=== PATIENT | female | born 1985 | race African-American/Black ===

== ENCOUNTER → 2019-08-17 | Outpatient (CLI) | payer OTHER ==
--- NOTE | 2019-08-17 10:03 | REP ---
Clinical: Anatomical evaluation. Comparison: None . Findings: Examination demonstrates a single live intrauterine in breech presentation. motion is identified by technologist. Placenta is noted anterior and grade one without evidence for placenta previa or abruption. Amniotic fluid volume is normal. Cervix measures 4.4 cm in length and appears closed. No evidence for nuchal cord. Gestational age by LMP 28 weeks 4 days with NIEVES 11/05/2019 . Gestational age by current measurements 30 weeks 1 day with NIEVES 10/25/2019 . FHR equals 161 beats per minute. BPD 7.6 cm 30 weeks 2 days HC 28.7 cm 31 weeks 3 days AC 25.2 cm 29 weeks 3 days FL 5.6 cm 29 weeks 3 days HL 5.2 cm 30 weeks 2 days HC/AC ratio 1.14 Estimated weight 1437 grams ( 68th percentile). Amniotic fluid index: 20.8 cm Umbilical cord SD ratio: 2.67 Anatomical assessment demonstrates normal structures including cranium, choroid plexus, cavum, cerebellum/posterior fossa, lungs, four-chamber heart, diaphragm, stomach, cord insertion/three-vessel cord, kidneys/bladder, spine, and extremities. Impression: 1. Single live intrauterine in breech presentation demonstrating appropriate interval growth. 2. Limited evaluation of the facial features and cardiac ventricular outflow tracts noted. Remainder of the anatomical assessment is complete and normal. Electronically Signed by Abelino Porras MD 08/17/2019 09:55 A
== END ==
LOC: M RAD 08:44
PROVIDERS: ATTEND Obstetrics & Gynecology
DX: O13.2 Gestational [pregnancy-induced] hypertension without significant proteinuria, second trimester (principal); Z3A.30 30 weeks gestation of pregnancy

== ENCOUNTER → 2019-09-14 | Outpatient (CLI) | payer OTHER ==
--- NOTE | 2019-09-14 08:48 | REP ---
Clinical: well-being. Comparison: 08/17/2019 . Findings: Examination demonstrates a single live intrauterine in cephalic presentation. motion is identified by technologist. Placenta is noted anterior and grade I I without evidence for placenta previa or abruption. Amniotic fluid volume is normal. Cervix measures 5.3 cm in length and appears closed. No evidence for nuchal cord. Gestational age by LMP 32 weeks 4 days with NIEVES 11/05/2019 . Gestational age by first US 34 weeks 1 day with NIEVES 10/25/2019 . FHR equals 141 beats per minute. Biophysical profile score: 8/8 Amniotic fluid index: 20.4 cm Umbilical cord SD ratio: 2.62 Impression: Single live intrauterine in cephalic presentation. Biophysical profile score and amniotic fluid volume are normal. Electronically Signed by Abelino Porras MD 09/14/2019 08:39 A
== END ==
LOC: M RAD 08:03
PROVIDERS: ATTEND Obstetrics & Gynecology
DX: O28.3 Abnormal ultrasonic finding on antenatal screening of mother (principal); Z3A.34 34 weeks gestation of pregnancy

== ENCOUNTER → 2019-10-09 | Outpatient (CLI) | payer OTHER ==
--- NOTE | 2019-10-09 15:08 | REP ---
OB ULTRASOUND: Real-time sonographic evaluation of the gravid uterus performed. There is a single living intrauterine gestation, estimated gestational age 36 weeks 1 day based on LMP, EDC 11/05/2019. Today's measurements indicate appropriate growth compared to the study of 08/17/2019. BPD 94 mm = 38 weeks 2 days, 80th percentile HC 328 mm = 37 weeks 1 day, 68th percentile AC 361 mm = 40 weeks 0 days, over 95th percentile FL 70 mm = 36 weeks 1 day, 50th percentile HC/AC ratio 0.91, minimally below normal range of 0.92 to 1.11. Estimated weight 3560 grams, over 97th percentile. Cervix is closed and measures 3.9 cm in length. heart rate 146 beats per minute. Amniotic fluid within normal limits, GELA 10.6, within normal range of 7.7 to 24.9. Biophysical profile score 8/8. S/D ratio 2.62, within normal range of 1.96 to 2.96. RI 0.62, within normal range of 0.59 to 0.75. Visualized anatomy today includes upper lip, four chamber heart, stomach, cord insertion, three-vessel cord, kidneys and bladder which are all grossly unremarkable. position vertex. Placenta anterior and grade 2 with no previa or abruption. Electronically Signed by Tramaine Su MD 10/09/2019 04:56 P
== END ==
LOC: M RAD 13:45
PROVIDERS: ATTEND Obstetrics & Gynecology
DX: Z34.83 Encounter for supervision of other normal pregnancy, third trimester (principal); Z3A.36 36 weeks gestation of pregnancy

== ENCOUNTER 2019-10-20 21:04 | Outpatient (CLI) | payer OTHER ==
[~2019-10-20] VITALS: Ht 175.3 cm; Wt 96.1 kg
[2019-10-20] VITALS (7 sets, daily range): BP systolic 134–176; BP diastolic 82–111
[2019-10-20] MEDS ORDERED: COLA100C5 PO (21:36)
[2019-10-20] MEDS ORDERED: PRENTAB9 PO (21:36)
[2019-10-20] MEDS ORDERED: FERR325T3 PO (21:36)
[2019-10-20] MEDS ORDERED: OCUVCAP PO (21:36)
[2019-10-20] MEDS ORDERED: LABE200T32 PO (21:36)
[2019-10-20 22:21] LABS: HEMATOCRIT 35.9 % (36.0-47.0); HEMOGLOBIN 11.9 g/dl (12.0-15.5); MEAN CORPUSCULAR HEMOGLOBIN 30.4 pg (27.0-33.0); MEAN CORPUSCULAR HGB CONC 33.1 g/dl (32.0-36.5); MEAN CORPUSCULAR VOLUME 91.6 fl (80.0-96.0); PLATELET COUNT, AUTOMATED 206 10^3/uL (150-450); RED BLOOD COUNT 3.92 10^6/uL (4.00-5.40); WHITE BLOOD COUNT 5.7 10^3/uL (4.0-10.0)
[2019-10-20 22:46] LABS: ALT/SGPT 13 U/L (12-78); BILIRUBIN,TOTAL 0.4 MG/DL (0.2-1.0); CREATININE FOR GFR 0.47 MG/DL (0.55-1.30); CREATININE,RANDOM URINE 44.5 MG/DL; GLOMERULAR FILTRATION RATE > 60.0 (>60); LDH LACTATE DEHYDROGENASE 216 U/L (84-246); TOTAL PROTEIN,RANDOM URINE 10.7 MG/DL (0.0-12.0); URIC ACID 3.7 MG/DL (2.6-6.0)
[2019-10-20] MEDS ORDERED: NIFEdipine 30 MG XL TAB PO ONE (23:00)
[2019-10-21 00:07] VITALS: BP 135/80
[2019-10-21 00:22] VITALS: BP 133/78
--- NOTE | 2019-10-21 10:11 | HPE ---
DATE OF ADMISSION: 10/20/2019 33-year-old, 2, para 1, last menstrual period (LMP) 01/29/2019, estimated date of confinement (EDC) 11/05/2019, at 37 and 6 weeks of gestation has a history of recent use of labetalol 200 twice a day. She has a longstanding history of chronic hypertension and taking her own blood pressures she saw midrange blood pressures came in although she is asymptomatic. She had a CT scan and MRI ruling out renal artery stenosis in 2016. She has a diagnosis of chronic hypertension, etiology unknown. She had been on nifedipine XL for 10 years. She had been on a combination of hydrochlorothiazide and some other medication, although in this she just recently started on labetalol 200 twice a day which was at her last visit at 36 weeks of gestation. PAST HISTORY: In 2018, at 38 weeks, spontaneous vaginal delivery of female. Her medications presently are labetalol twice a day and we added nifedipine 30 mg XL. Labs are A positive, HIV negative, hepatitis negative, RPR negative, rubella immune. Varicella immune. Pap normal. Urine negative. Gonorrhea and chlamydia are negative. 1 hour glucose was 146. Her 3 hour GTT fasting was 86, 1 hour 169, 2 hour 159 with 3 hours of 118. GBS status is unknown. She is presently booked for induction of labor on 10/23/2019. On examination, no distress. No right upper quadrant pain. No visual disturbances. No edema. No swelling. Normal urinary output. Symphysis fundus height is 38, vertex presenting. Category 1 strip with the occasional contractions, although she is not minding them. Cervix is posterior closed, not dilated and very high, thick. No vaginal bleeding or discharge. We added nifedipine XL 30. Kept here for several hours. Blood pressure ranges 134/83, 136/81, 138/82, 135/80, 133/78 and she is asymptomatic on the nifedipine. She said it worked well for her for 10 years in combination with labetalol. Temperature is 98.8, respirations are 18, pulse 88. Hemoglobin 11.9, hematocrit 35.9, and platelets 206. Her pre E profile, liver enzymes were normal. Uric acid was 3.7. Protein creatinine ratio is 0.24. In summary, we have chronic hypertension requiring additional medication, discharged on the medication. Followup for induction of labor in 48 hours. Precautions were given. All questions were answered.
== END 2019-10-21 01:25 | disposition home or self-care (01) ==
LOC: M LDO 21:04
PROVIDERS: ATTEND Obstetrics & Gynecology
DX: O26.893 Other specified pregnancy related conditions, third trimester (principal); R03.0 Elevated blood-pressure reading, without diagnosis of hypertension; O10.012 Pre-existing essential hypertension complicating pregnancy, second trimester; Z3A.37 37 weeks gestation of pregnancy
CPT/HCPCS: 59025; 82247; 82565; 82570; 83615; 84156; 84450; 84460; 84550; 85027; G0378; G0463

== ENCOUNTER 2019-10-23 14:14 | Inpatient (IN) | payer OTHER ==
[~2019-10-23] VITALS: Ht 175.3 cm; Wt 95.6 kg
[2019-10-23] VITALS (12 sets, daily range): BP systolic 120–156; BP diastolic 73–101
[~2019-10-23 14:14] MED LIST: COLA100C5 PO; FERR325T3 PO; LABE200T32 PO; OCUVCAP PO; PRENTAB9 PO
[2019-10-23] MEDS ORDERED: NIFE30TA50 PO (14:28)
[2019-10-23] MEDS ORDERED: LACTATED RINGER'S 1000 ML IV STA (14:48)
[2019-10-23 15:52] LABS: BASO % 0.4 % (0.0-1.0); EOS # 0.1 10^3/uL (0.0-0.5); EOS % 0.9 % (0.0-3.0); HEMATOCRIT 34.1 % (36.0-47.0); HEMOGLOBIN 11.4 g/dl (12.0-15.5); LYMPH # 1.1 10^3/uL (1.5-5.0); MEAN CORPUSCULAR HEMOGLOBIN 30.6 pg (27.0-33.0); MEAN CORPUSCULAR HGB CONC 33.4 g/dl (32.0-36.5); MEAN CORPUSCULAR VOLUME 91.4 fl (80.0-96.0); MONO # 0.7 10^3/uL (0.0-0.8); MONO % 11.7 % (0.0-5.0); NEUTROPHILS # 3.7 10^3/uL (1.5-8.5); NEUTROPHILS % 66.8 % (36.0-66.0); PLATELET COUNT, AUTOMATED 213 10^3/uL (150-450); RED BLOOD COUNT 3.73 10^6/uL (4.00-5.40); WHITE BLOOD COUNT 5.5 10^3/uL (4.0-10.0)
[2019-10-23 15:59] LABS: APPEARANCE, URINE CLEAR (CLEAR); BACTERIA, URINE AUTO 1+ (NEGATIVE); BILIRUBIN, URINE AUTO NEGATIVE (NEGATIVE); BLOOD, URINE BLOOD NEGATIVE (NEGATIVE); COLOR, URINE STRAW (YELLOW); GLUCOSE, URINE (UA) AUTO NEGATIVE (NEGATIVE); KETONE, URINE AUTO NEGATIVE (NEGATIVE); LEUKOCYTE ESTERASE, URINE AUTO TRACE (NEGATIVE); NITRITE, URINE AUTO NEGATIVE (NEGATIVE); PROTEIN, URINE AUTO NEGATIVE (NEGATIVE); RBC, URINE AUTO 1 /HPF (0-3); SPECIFIC GRAVITY URINE AUTO 1.005 (1.002-1.035); SQUAMOUS EPITHELIAL CELL UR AU 0 /HPF (0-6); UROBILINOGEN, URINE AUTO 0.2 mg/dL (0.0-2.0); WBC, URINE AUTO 2 /HPF (0-3)
--- NOTE | 2019-10-23 16:13 | HPEPDOC ---
Obstetrical History & Physical General Date of Admission Oct 23, 2019 at 14:14 History of Present Illness 34 yo at 38+1 weeks gestation by LMP of [id number] c/w 7+6 week US on 26Mar2019 presents to L&D for an IOL for CHTN. She takes labetalol and nifedipine for BP control. Today she reports feeling well. She denies any vaginal bleeding, pelvic pain, contractions, or leakage of fluid. She endorses excellent movement. Chief Complaint: Induction of labor Age: 34 : 2 Term: 1 Pre-term: 0 Abortions: 0 Livin Care Care: Good Care Dating Final EDC: Nov 05, 2019 Final EDC for Daily Update: Nov 05, 2019 Final EDC by: LMP (LMP of [id number] set NIEVES of 05Nov2019) LMP: Jan 29, 2019 1st Trimester Date: Mar 26, 2019 (7+6 week US on 26Mar2019 c/ w LMP dating. NIEVES remains 05Nov2019) Antepartum Course Diagnos(e)s Chronic hypertension --> controlled with labetalol and nifedipine. Has been on ASA throughout . Elevated 1hr GTT of 146. Normal 3hr GTT Past Medical History Past Obstetrical History : Past Obstetrical History: Multigravida ( in 2018 after IOL for CHTN) Type of Delivery: Spontaneous Vaginal Del. 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 Past Medical History Medical History Chronic hypertension --> controlled with meds Surgical History: Noble teeth, Other (Foot surgery) Family History Significant Family History: No pertinent family hx Social History Marital Status: Family situation: Spouse/partner home Psychosocial History: No pertinent psych hx * Smoker: non-smoker Alcohol: Denies Drugs: denies Imunizations Tdap status: current Influenza Status: needs Allergies Coded Allergies: No Known Allergies (Unverified , 10/20/19) Medications Scheduled Docusate Sodium (Colace) 100 Mg Capsule, 100 MG PO BID Ferrous Sulfate (Ferrous Sulfate) 325 Mg Tablet.dr, 325 MG PO BID Labetalol HCl (Labetalol HCl) 200 Mg Tablet, 200 MG PO BID Nifedipine (Nifedipine ER) 30 Mg Tablet.er, 30 MG PO DAILY No.137/Iron/Folic Acd ( Vitamin Tablet) 1 Each Tablet, 1 TAB PO DAILY Vit C/E/Zn/Coppr/Lutein/Zeaxan (Ocuvite Lutein-Zeaxanthin Cap) 1 Each Capsule, 1 CAP PO BID Physical Examination Physical Examination GENERAL: Alert and oriented times three. ABDOMEN: Gravid and non-tender to touch. FETUS: Is vertex (VTX) by sterile vaginal examination (SVE) EXTREMITIES: No edema. Bedside TAUS( anatomy not assessed) - cephalic presenting infant Laboratory Data 24H LABS Laboratory Tests 2 10/23/19 14:49: Serology Scanned Report Hepatitis B Testing 10/23/19 15:37: Immature Granulocyte % (Auto) 0.2, Neutrophils (%) (Auto) 66.8H, Lymphocytes (%) (Auto) 20.0L, Monocytes (%) (Auto) 11.7H, Eosinophils (%) (Auto) 0.9, Basophils (%) (Auto) 0.4, Neutrophils # (Auto) 3.7, Lymphocytes # (Auto) 1.1L, Monocytes # (Auto) 0.7, Eosinophils # (Auto) 0.1, Basophils # (Auto) 0.0, Nucleated Red Blood Cells % (auto) 0.0 10/23/19 15:44: 10/23/19 15:45: CBC/BMP Laboratory Tests 10/23/19 15:37 Urine Culture: No Growth Pertinent Laboratoy Data Blood Type: A+ RBC Antibody Screen: Negative HIV: Negative Hepatitis B: Negative Hepatitis C: Unknown Rapid Plasma Reagin: Nonreactive Rubella: Immune Varicella: Immune Chlamydia/Gonorrhea: Negative Group B Streptococcus: Negative Quad Screen Test: Unknown Cystic Fibrosis: Negative Glucose Tolerance Test: 146 (1hr 146. Normal 3hr GTT) Anatomy Ultrasound Ultrasound Date: Jun 23, 2019 Placenta Location: Anterior Normal Anatomy: Yes Placenta Previa: No Steroid Therapy Steroid Therapy: No Vaginal Examination Dilation: Fingertip Effacement: 50% Station: -3 Cervical Consistency: Soft Cervical Position: Posterior Presentation: Cephalic presentation Position: Vertex (occiput) Assessment Heart Rate (FHR): 140 Variability: Moderate Accelerations: Positive Decelerations: None Tocometer Contractions: No Assessment/Plan Assessment 34 yo at 38+1 weeks gestation presents today for IOL for CHTN. Plan Admit for IOL. Apply IV fluids. GBS negative. Cervix unfavorable. Will start induction with misoprostol. Regular diet for now. Patient may have epidural if desired. Anticipate . Elly Castle DO Labor and Delivery Counseling L&D counseling and consent for Vaginal / Operative vaginal delivery Deliver your baby through the vagina with possible assistance of forceps or vacuum device if needed for maternal or indications. Forceps and vacuum are devices that can assist with vaginal delivery when normal pushing efforts cannot achieve delivery on their own or when delivery is needed in an emergency for baby's well-being. Medications may be required to induce or augment (help) your labor in order to achieve a vaginal delivery. An episiotomy may be required to help your baby to delivery vaginally. You may also require repair of any lacerations or tears of your vagina or vulva that are caused by delivery. In some cases, emergencies can occur that require an emergency section delivery so quickly that there may not be enough time to stop and complete consent forms for section. Understand that if this occurs, your providers will discuss the need for a section with you before they proceed with surgery. section is the delivery of your baby through an incision in your abdomen. In some situations, section may be safer to mom and baby than continuing labor and is only performed when clinically indicated. Risks of vaginal delivery include but are not limited to: Bleeding, infection, injury to the vagina, pelvic structures, injury to baby, damage to the uterus, reactions to anesthesia, uterine rupture, risk of hysterectomy for life threatening bleeding, or . Medications used to induce or augment labor may increase your risk for infection, uterine tachysystole, uterine rupture, heart rate abnormalities, need for emergency delivery or possible hysterectomy, and hemorrhage. Additional risks for use of forceps and vacuum include: increased risk of perineal and vaginal lacerations, risk of urinary or bowel incontinence, increased risk of injury to baby with bruising, scratches, hematomas on the head, or intracranial bleeding. Bailey verbalized understanding of all these risks and consents for treatment. She also consents to receiving a blood transfusion if needed. ELLY CASTLE DO Oct 23, 2019 16:13
[2019-10-23 16:15] LABS: ALT/SGPT 16 U/L (12-78); BILIRUBIN,TOTAL 0.3 MG/DL (0.2-1.0); GLOMERULAR FILTRATION RATE > 60.0 (>60); LDH LACTATE DEHYDROGENASE 207 U/L (84-246); URIC ACID 4.3 MG/DL (2.6-6.0)
[2019-10-23 16:16] LABS: TOTAL PROTEIN,RANDOM URINE 6.3 MG/DL (0.0-12.0)
[2019-10-23] MEDS: miSOPROStol 50 MCG 1/2 TAB (S0191) PO SCH (16:48)
[2019-10-23] MEDS: LABETALOL 200 MG TAB PO SCH (20:34)
[2019-10-23] MEDS ORDERED: ONDANSETRON 4MG/2ML VIAL (J2405) IV PRN (21:30)
[2019-10-23] MEDS ORDERED: BUTORPHANOL 2 MG/ML INJ (J0595) IV PRN (21:30)
[2019-10-24] VITALS (47 sets, daily range): BP systolic 119–184; BP diastolic 66–97
[2019-10-24] MEDS: miSOPROStol 50 MCG 1/2 TAB (S0191) PO SCH (01:09)
[2019-10-24] MEDS: LABETALOL 200 MG TAB PO SCH ×2 (08:05→21:13)
--- NOTE | 2019-10-24 08:06 | IPNPDOC ---
Text Note Date of Service The patient was seen on 10/24/19. NOTE Bailey is comfortable. She has received multiple doses of cytotec. Contra ctions are sporadic on toco. FHR Cat I. Blood pressures normal to only mildly elevated. Report given to oncoming paint process engineer Dr. Burkett. DO Tin VS,Johnny, I+O VS, Johnny, I+O Laboratory Tests 10/23/19 15:37 Vital Signs Date Time Temp Pulse Resp B/P (MAP) Pulse Ox O2 Delivery O2 Flow Rate FiO2 10/24/19 07:32 98.9 84 18 123/78 (93) 98 Room Air ELLY RODGERS DO Oct 24, 2019 08:06
--- NOTE | 2019-10-24 09:54 | IPN ---
DATE: 10/24/2019 38 and 1 weeks, 2, para 1 was admitted for induction of labor because of chronic hypertension now well controlled on two medications, labetalol and nifedipine XL 30 mg. She was given two lots of misoprostol which did not give her any effective contractions. She was a fingertip, posterior, -3 station. After many hours of intermittent transient contractions evaluation showed a category 1 strip. Pelvic examination is basically unchanged from before, and because she is just a fingertip posterior, inability to even put a Contreras bulb catheter in, she has already had two lots of misoprostol and so, we elected to augment with Pitocin. Presently her blood pressures 134/80, 123/78, 133/89 and basically are well controlled. Her pre-eclamptic profile was negative times two. Most recent one was reviewed in 24 hours. The patient expressed understanding of the plan of care. Safe to proceed. We will order her nifedipine XL 30 mg at noon.
[2019-10-24] MEDS ORDERED: OXYTOCIN DRIP 30 UNITS in IV 1 EA IV SCH ×2 (10:00→19:16)
[2019-10-24] MEDS: LR 1,000 ML IV SCH ×2 (10:14→16:59)
[2019-10-24] MEDS: NIFEdipine 30 MG XL TAB PO SCH (11:54)
[2019-10-24] MEDS ORDERED: FENTANYL 2MCG/ML ROPIVACAINE 0.2% IN 0.9% NACL 100ML IVBAG As Ordered ONE (15:38)
--- NOTE | 2019-10-24 15:52 | IPN ---
DATE: 10/24/2019 This lady who was induced for chronic hypertension. She was at 8 cm at 1300 hours. At 1500 hours she started to push uncontrollably, but she did not want to have an epidural. We re-evaluated her, and she has a very thick anterior lip and in POP position. She cannot stop the urge to push, but the lip is getting increasingly swollen and enlarged. We discussed the fact we need her to be in control and to not push, and if not, effectively an epidural would help her to reduce the urge to push and allow the lip by passive descent to resolve. The patient agrees to the plan of care. Category 1 strip. Clear liquor is noted. Blood pressures are normalized. Last blood pressure was 129/86, respirations 18, pulse 85, temperature 97.7.
[2019-10-24] MEDS ORDERED: ONDANSETRON 4MG/2ML VIAL (J2405) IV PRN (17:15)
[2019-10-24] MEDS ORDERED: NALOXONE INJ 0.4 MG/1 ML VIAL (J2310) IV PRN (17:15)
[2019-10-24] MEDS ORDERED: FENTANYL/ROPIVACAINE/NACL BAG 100 ML EPIDURAL SCH (17:15)
[2019-10-24] MEDS ORDERED: ePHEDrine SULFATE 25 MG/5 ML(5MG/ML) SYRINGE IV PRN (17:15)
[2019-10-24] MEDS ORDERED: REFRIGERATOR IV KEYS XX PRN (17:15)
[2019-10-24] MEDS ORDERED: diphenhydrAMINE INJ 50MG/ML VIAL (J1200) IV PRN (17:15)
[2019-10-24] MEDS ORDERED: EPIDURAL COMMENT XX SCH (17:15)
[2019-10-24] MEDS ORDERED: EPIDURAL/PCA KEYS XX PRN (17:15)
[2019-10-24 18:42] LABS: CORD GAS ABE V -5.6; CORD GAS HCO3 V 19.2 MEQ/L; CORD GAS O2 SAT V 78.4 %; CORD GAS PCO2 V 35.9 mmHg; CORD GAS PH V 7.347 UNITS; CORD GAS PO2 V 33.9 mmHg; CORD GAS SBC V 19.5 MEQ/L; CORD GAS TCO2 V 20.3 MEQ/L
[2019-10-24 18:43] LABS: CORD GAS ABE A -3.3; CORD GAS HCO3 A 23.2 MEQ/L; CORD GAS O2 SAT A 51.5 %; CORD GAS PCO2 A 46.8 mmHg; CORD GAS PH A 7.313 UNITS; CORD GAS PO2 A 23.3 mmHg; CORD GAS SBC A 20.5 MEQ/L; CORD GAS TCO2 A 24.6 MEQ/L
[2019-10-24] MEDS ORDERED: ACETAMINOPHEN TAB 650MG DOSE (2X325MG) PO PRN (19:30)
[2019-10-24] MEDS ORDERED: MOM 30ML SUSPENSION UDC PO PRN (19:30)
[2019-10-24] MEDS ORDERED: ACETAMINOPHEN 500 MG TAB PO PRN (19:30)
[2019-10-24] MEDS ORDERED: IBUPROFEN 600 MG TAB PO PRN (19:30)
[2019-10-24] MEDS ORDERED: MEASLES,MUMPS,RUBELLA VACCINE INJ (MMR-II) (90707) SC SCH (19:30)
[2019-10-24] MEDS ORDERED: DIBUCAINE 1% OINTMENT 30GM TOP PRN (19:30)
[2019-10-24] MEDS ORDERED: ANUSOL HC CREAM 30GM TOP PRN (19:30)
[2019-10-24] MEDS ORDERED: METHYLERGONOVINE MALEATE 0.2 MG TAB PO PRN (19:30)
[2019-10-24] MEDS ORDERED: RHOGAM 300 MCG (1500 IU) INJ (J2790) IM SCH (19:30)
[2019-10-24] MEDS ORDERED: OXYTOCIN INJ 10 UNITS/ML VIAL (J2590) IV ONE (19:30)
[2019-10-24] MEDS ORDERED: DOCUSATE SODIUM 100 MG CAP PO PRN (19:30)
[2019-10-24] MEDS ORDERED: LABETALOL HCL 100 MG/20 ML VIAL IV ONE (21:00)
--- NOTE | 2019-10-24 22:27 | IPN ---
DATE: 10/24/2009 at 1300 hours This lady is a 1 and 2, para 1, admitted for induction of labor because of chronic hypertension. She has had two lots of misoprostol. We started her on Pitocin because the cervix was not favorable for a Contreras bulb. We evaluated in 2-3 hours after. Contractions were moderate in intensity. Looked almost like tachysystole. Were up at 12 milliunits of Pitocin with a category 1 strip. On examination, the presenting part was well applied to the cervix, which was still very posterior but a stretchy 4 cm and -3 station. We were going to attempt to rupture the membranes; however she had a spontaneous rupture of membranes when we were going to proceed and do that. Therefore we backed down the Pitocin. Will anticipate progress from here. Category 1 strip.
[2019-10-25 02:00] VITALS: BP 141/78
[2019-10-25] MEDS: IBUPROFEN 800 MG TAB PO PRN ×2 (03:32→12:31)
[2019-10-25 06:00] VITALS: BP 139/74
[2019-10-25 06:18] LABS: HEMATOCRIT 32.8 % (36.0-47.0); HEMOGLOBIN 10.7 g/dl (12.0-15.5); MEAN CORPUSCULAR HEMOGLOBIN 30.1 pg (27.0-33.0); MEAN CORPUSCULAR HGB CONC 32.6 g/dl (32.0-36.5); MEAN CORPUSCULAR VOLUME 92.1 fl (80.0-96.0); PLATELET COUNT, AUTOMATED 173 10^3/uL (150-450); RED BLOOD COUNT 3.56 10^6/uL (4.00-5.40); WHITE BLOOD COUNT 8.1 10^3/uL (4.0-10.0)
[2019-10-25] MEDS: PRENATAL VITAMINS CHEWABLE TABLET PO SCH (08:56)
[2019-10-25] MEDS: LABETALOL 200 MG TAB PO SCH ×2 (08:57→20:38)
--- NOTE | 2019-10-25 12:01 | IPN ---
DATE OF SERVICE: 10/24/2019 This lady is 4, now para 2, who was admitted for induction of labor at 38 weeks of gestation because of chronic hypertension. She is presently on labetalol and nifedipine XL. after delivery, her blood pressures are 141/52, 154/91, 55/99, and 147/92. Her pre-eclamptic profile times two was negative. She is diuresing well, has no evidence of preeclampsia symptoms. We have elected to give her 200 mg intravenous (IV) labetalol times one dose. Her regular dosing of 200 mg twice a day is due at 2100 hours, and her nifedipine XL is due at 1200 hours a.m. We will monitor closely and evaluate for further IV medication as needed.
[2019-10-25] MEDS: NIFEdipine 30 MG XL TAB PO SCH (12:27)
[2019-10-25 17:28] VITALS: BP 148/80
[2019-10-26 06:51] VITALS: BP 140/83
[2019-10-26] MEDS ORDERED: IBUP80TA PO (07:01)
[2019-10-26] MEDS ORDERED: ACET-683 PO (07:01)
[2019-10-26] MEDS ORDERED: NIFE30TA7 PO (07:01)
[2019-10-26] MEDS ORDERED: DIBU10OI TOP (07:01)
[2019-10-26] MEDS ORDERED: DOCU100C16 PO (07:01)
[2019-10-26] MEDS ORDERED: LABE20TAB PO (07:01)
[2019-10-26] MEDS ORDERED: PROC1CRE5 TOP (07:01)
--- NOTE | 2019-10-26 08:09 | DN ---
DATE: 10/24/2019 DELIVERY NOTE 34-year-old, 2 admitted for induction of labor because of chronic hypertension at 38 and 1 weeks of gestation. She had an epidural in place. Spontaneous vaginal delivery of male weighing 8 pounds 4 ounces (3740 grams) score of 9 and 9 at one and five minutes respectfully. Cord times one loose around the neck. Arterial pH 7.31, base excess -3.3, venous pH 7.34, base excess -5.6. P Placenta delivered spontaneously thereafter. Three-vessel cord, membranes and tissues intact. The patient had sustained a little bit of a first-degree tear in the perineal area, which was oversewn usual fashion with #2-0 Vicryl and [id number]. The uterus contracted well on Pitocin. Reviewing anterior, posterior and lateral huber were complete. The sphincter was tight. The patient and baby tolerating procedure well. We will continue with her antihypertensives in her a period.
--- NOTE | 2019-10-26 08:35 | IPN ---
DATE: 10/25/2019 This lady is a 34-year-old, 2, now para 2, on day #1 was induced for chronic hypertension at 38 and 1 weeks of gestation delivered a live male 8 pounds 4 ounces (3740 grams) score 9 and 9 at one and five minutes respectfully. Arterial pH 7.31, base excess -3.3, venous pH 7.34, base excess -5.6. She had episodic elevations of her blood pressures in the first hour or two. She was given IV labetalol times one dose and then she has followed up with her routine labetalol twice a day and nifedipine XL 30 once a day. Her hemoglobin on admission 11.4, hematocrit 34.1, and platelets 213. day #1 hemoglobin 10.7, hematocrit 32.8, and platelets were 173. Her vital signs in the last 12 hours her blood pressures were in the mid range at 139/74, 141/78, 144/81. She has been afebrile 99.0, pulse 72, and respirations are 16. She denies any headache, blurred vision, right upper quadrant pain or edema. She feels that these the combination medications of labetalol and nifedipine are working well for her. The rest examination unremarkable. She is normocephalic, atraumatic. Neck full range of motion. Pupils equal and reactive to light. Distal pulses symmetric. No evidence of deep venous thrombosis (DVT), pulmonary embolism (PE) or superficial phlebitis. Chest is clear bilateral bases. No wheezes or rhonchi. No costovertebral angle (CVA) tenderness. Abdomen was soft, uterus 2 below, lochia was moderate, four quadrant bowel sounds are noted, and the perineum is healing. Our plan of management today is to monitor her blood pressure, continue her on her regime of medications. We discussed circumcision of , and we also discussed control and she is possibly going to followup with a 6 week checkup for discussion of further in depth about method of control. In summary, we have at 38+ week of gestation with chronic hypertension, delivered a live male infant, improved, breast feeding is going well.
[2019-10-26] MEDS: PRENATAL VITAMINS CHEWABLE TABLET PO SCH (09:17)
[2019-10-26 09:18] VITALS: BP 137/83
[2019-10-26] MEDS: LABETALOL 200 MG TAB PO SCH (09:18)
[2019-10-26 10:00] VITALS: BP 127/83
--- NOTE | 2019-10-26 13:26 | IPN ---
DATE: 10/26/2019 This lady and requested circumcision of their male after discussing risks, benefits of circumcision, the medical and nonmedical indications, the penile block and aftercare, expressed understanding of penile block, aftercare and bleeding, signed the consent form. All questions were answered, 20-minute discussion. Await clearance by the office spec.
--- NOTE | 2019-10-26 14:52 | DSES ---
DATE OF ADMISSION: 10/23/2019 DATE OF DISCHARGE: 10/26/2019 34-year-old, 2, now para 2 admitted for induction of labor with chronic hypertension at 38 and 1 weeks of gestation had a spontaneous vaginal delivery of a male 8 pounds 4 ounces (3740 grams) score of 9 and 9 at one and five minutes respectfully. Arterial pH 7.31, base excess -3.3, venous pH 7.34, base excess -5.6. She has been taking nifedipine 30 mg XL and labetalol 200 twice a day for control of her blood pressure. , she had two episodes of severe range blood pressures. She was given IV labetalol 20 mg for reducing her blood pressure to normalized numbers, after which, she was continued on her oral antihypertensives. This morning she is feeling well, anxious to go home. Her blood pressure is 144.87, respirations are 20, pulse is 98, and temperature is not available. Her lab work indicates her admitting hemoglobin was 11.4, hematocrit 34.1, and platelets 213. Her day #1 hemoglobin is 10.7, hematocrit 32.8, and platelets are 173. The rest examination unremarkable. She is normocephalic, atraumatic. Neck full range of motion. Pupils equal and reactive to light. Distal pulses symmetric. No evidence of deep venous thrombosis (DVT), pulmonary embolism (PE) or superficial phelbitis. Chest is clear bilaterally to bases. No wheezes or rhonchi. No costovertebral angle (CVA) tenderness. Abdomen soft. Uterus 2 below lochia. Four quadrant bowel sounds are noted. The perineum is clean and dry. She has no rashes, lesions or pruritus. No arthralgia or myalgia. No complaint of joint pain. No complaint of cough, wheeze, shortness of breath or dyspnea on exertion. No nausea, vomiting, diarrhea or constipation. She has no urgency or frequency. She is not complaining of a headache, right upper quadrant pain or edema. She feels well on nifedipine and her labetalol she has dispensed at home the medications and has a followup in 1 week for check and 6 weeks for regular check. In summary, we have at 38+ week of gestation admitted for induction of labor because of chronic hypertension discharged improved. Followup in 1 weeks' time for blood pressure. edited: 10/27/2019 0812 ellen CORBETT
== END 2019-10-26 13:30 | disposition home or self-care (01) | DRG 807 ==
LOC: M LDI 14:14 → M OBS 10-24 22:20
PROVIDERS: ADMIT Obstetrics & Gynecology; ATTEND Obstetrics & Gynecology
PROC: 0HQ9XZZ Repair Perineum Skin, External Approach (ICD-10-PCS; 2019-10-23)
PROC: 3E0DXGC Introduction of Other Therapeutic Substance into Mouth and Pharynx, External Approach (ICD-10-PCS; 2019-10-23)
PROC: 10E0XZZ Delivery of Products of Conception, External Approach (ICD-10-PCS; principal; 2019-10-24)
DX: O10.02 Pre-existing essential hypertension complicating childbirth (principal); Z37.0 Single live birth; Z3A.38 38 weeks gestation of pregnancy; Z79.899 Other long term (current) drug therapy; O69.81X0 Labor and delivery complicated by cord around neck, without compression, not applicable or unspecified; O70.0 First degree perineal laceration during delivery

== ENCOUNTER 2019-12-13 21:52 | Emergency (ER) | payer OTHER ==
[~2019-12-13] VITALS: Ht 175.3 cm; Wt 87.1 kg
[~2019-12-13 21:52] MED LIST changes: +ACET-683 PO; +DIBU10OI TOP; +DOCU100C16 PO; +IBUP80TA PO; +LABE20TAB PO; +NIFE1TAB52 PO; +NIFE30TA50 PO; +PROC1CRE5 TOP
[2019-12-13 23:06] LABS: BASO % 0.2 % (0.0-1.0); EOS # 0.2 10^3/uL (0.0-0.5); EOS % 2.7 % (0.0-3.0); HEMATOCRIT 34.8 % (36.0-47.0); HEMOGLOBIN 11.7 g/dl (12.0-15.5); LYMPH # 2.2 10^3/uL (1.5-5.0); LYMPH % 34.9 % (24.0-44.0); MEAN CORPUSCULAR HEMOGLOBIN 30.1 pg (27.0-33.0); MEAN CORPUSCULAR HGB CONC 33.6 g/dl (32.0-36.5); MEAN CORPUSCULAR VOLUME 89.5 fl (80.0-96.0); MONO # 0.6 10^3/uL (0.0-0.8); NEUTROPHILS # 3.2 10^3/uL (1.5-8.5); PLATELET COUNT, AUTOMATED 316 10^3/uL (150-450); RED BLOOD COUNT 3.89 10^6/uL (4.00-5.40); WHITE BLOOD COUNT 6.2 10^3/uL (4.0-10.0)
[2019-12-13 23:13] LABS: ALBUMIN 4.1 GM/DL (3.2-5.2); ALT/SGPT 54 U/L (12-78); BILIRUBIN,DIRECT 0.1 MG/DL (0.0-0.2); BILIRUBIN,TOTAL 0.4 MG/DL (0.2-1.0); BLOOD UREA NITROGEN 12 MG/DL (7-18); CALCIUM LEVEL 8.7 MG/DL (8.5-10.1); CARBON DIOXIDE LEVEL 25 MEQ/L (21-32); CHLORIDE LEVEL 108 MEQ/L (98-107); CREATININE FOR GFR 0.68 MG/DL (0.55-1.30); GLOMERULAR FILTRATION RATE > 60.0 (>60); GLUCOSE, FASTING 94 MG/DL (70-100); MAGNESIUM LEVEL 1.9 MG/DL (1.8-2.4); POTASSIUM SERUM 3.4 MEQ/L (3.5-5.1); SODIUM LEVEL 140 MEQ/L (136-145); TOTAL PROTEIN 7.7 GM/DL (6.4-8.2); URIC ACID 4.2 MG/DL (2.6-6.0)
[2019-12-14 01:02] VITALS: BP 129/90
--- NOTE | 2019-12-14 11:14 | ECGEPIP ---
[facility] - ED Test Date: 2019-12-13 Pat Name: JONEL TRACEY Department: Room: - Gender: Female House Father: : 1985 Requested By: JOVANNY Fisher Order Number: [id number] Reading MD: Rayne Hassan Measurements Intervals Orick Rate: 75 P: 15 ME: 157 QRS: 16 QRSD: 80 T: 3 QT: 374 QTc: 420 Interpretive Statements SINUS RHYTHM NSTTW abnormalities NO PRIOR Electronically Signed on 12-14-2019 11:14:08 EST by Rayne Hassan
== END 2019-12-14 01:15 | disposition home or self-care (01) ==
LOC: M ED 21:52
DX: I10 Essential (primary) hypertension (principal); Z79.899 Other long term (current) drug therapy

== ENCOUNTER → 2020-04-26 | Outpatient (CLI) | payer OTHER ==
--- NOTE | 2020-04-26 16:20 | REP ---
RENAL ULTRASOUND WITH DUPLEX DOPPLER RENAL ARTERY EVALUATION: Real-time ultrasound evaluation of the kidneys is performed. The kidneys are normal in size and echotexture, right kidney measuring 13.0 x 6.9 x 4.6 cm and the left kidney 12.8 x 6.2 x 5.8 cm. There is no hydronephrosis bilaterally. Round hyperechoic area in the lower pole of the right kidney measures 9 mm in diameter possibly representing an angiomyolipoma. Urinary bladder is minimally distended and not well evaluated. Real-time sonographic evaluation and duplex Doppler interrogation of the renal arteries is performed bilaterally. Peak systolic velocity of the abdominal aorta at the level of the renal arteries is 88 cm/s. Peak systolic velocity of the main right renal artery is 166 cm/s, renal to aortic ratio 1.89. Resistive indices are measured in the upper, middle, and lower thirds of the right kidney and range between 0.57 and 0.62. Acceleration times range between 0.044 and 0.052. Peak systolic velocity of the main left renal artery is 134 cm/s, renal to aortic ratio 1.52. Resistive indices left kidney range between 0.52, and 0.62. Acceleration times range between 0.053 and 0.064. IMPRESSION: No compelling duplex Doppler sonographic evidence of significant renal artery stenosis. Probable 9 mm angiomyolipoma lower pole right kidney. Electronically Signed by Tramaine Su MD 04/26/2020 07:52 P
== END ==
LOC: M RAD 06:45
PROVIDERS: ATTEND Internal Medicine Nephrology
DX: I15.0 Renovascular hypertension (principal); D17.71 Benign lipomatous neoplasm of kidney

== ENCOUNTER 2021-01-24 22:39 | Emergency (ER) | payer OTHER ==
[~2021-01-24] VITALS: Ht 175.3 cm; Wt 82.5 kg
[2021-01-24 22:39] VITALS: BP 170/96
[2021-01-24] MEDS ORDERED: LABE300T2 PO (22:56)
[2021-01-25 03:16] LABS: BLOOD UREA NITROGEN 11 MG/DL (7-18); CALCIUM LEVEL 9.5 MG/DL (8.5-10.1); CARBON DIOXIDE LEVEL 26 MEQ/L (21-32); CHLORIDE LEVEL 105 MEQ/L (98-107); CK-MB VALUE MASS 1.7 NG/ML (<3.6); CPK CREATINE PHOSPHOKINASE 211 U/L (26-192); CREATININE FOR GFR 0.64 MG/DL (0.55-1.30); GLOMERULAR FILTRATION RATE > 60.0 (>60); GLUCOSE, FASTING 87 MG/DL (70-100); MB/CK RELATIVE INDEX 0.81 (< OR =4); POTASSIUM SERUM 3.8 MEQ/L (3.5-5.1); SODIUM LEVEL 140 MEQ/L (136-145); TROPONIN I < 0.02 NG/ML (< 0.10)
[2021-01-25 03:17] LABS: HCG, SERUM QUALITATIVE NEGATIVE (NEGATIVE)
[2021-01-25 03:23] LABS: APPEARANCE, URINE CLEAR (CLEAR); BACTERIA, URINE AUTO NEGATIVE (NEGATIVE); BILIRUBIN, URINE AUTO NEGATIVE (NEGATIVE); BLOOD, URINE BLOOD NEGATIVE (NEGATIVE); COLOR, URINE STRAW (YELLOW); GLUCOSE, URINE (UA) AUTO NEGATIVE (NEGATIVE); KETONE, URINE AUTO NEGATIVE (NEGATIVE); LEUKOCYTE ESTERASE, URINE AUTO NEGATIVE (NEGATIVE); NITRITE, URINE AUTO NEGATIVE (NEGATIVE); PROTEIN, URINE AUTO NEGATIVE (NEGATIVE); RBC, URINE AUTO 0 /HPF (0-3); SPECIFIC GRAVITY URINE AUTO 1.009 (1.002-1.035); SQUAMOUS EPITHELIAL CELL UR AU 0 /HPF (0-6); UROBILINOGEN, URINE AUTO 0.2 mg/dL (0.0-2.0); WBC, URINE AUTO 0 /HPF (0-3)
[2021-01-25] MEDS ORDERED: NIFE1TAB51 PO (03:24)
[2021-01-25 03:27] LABS: BASO # 0.1 10^3/uL (0.0-0.2); BASO % 0.7 % (0.0-1.0); EOS # 0.1 10^3/uL (0.0-0.5); EOS % 1.7 % (0.0-3.0); HEMATOCRIT 34.8 % (36.0-47.0); HEMOGLOBIN 11.4 g/dl (12.0-15.5); LYMPH # 1.7 10^3/uL (1.5-5.0); LYMPH % 23.5 % (24.0-44.0); MEAN CORPUSCULAR HEMOGLOBIN 30.1 pg (27.0-33.0); MEAN CORPUSCULAR HGB CONC 32.8 g/dl (32.0-36.5); MEAN CORPUSCULAR VOLUME 91.8 fl (80.0-96.0); MONO # 0.5 10^3/uL (0.0-0.8); MONO % 7.2 % (2.0-8.0); NEUTROPHILS # 4.8 10^3/uL (1.5-8.5); NEUTROPHILS % 66.6 % (36.0-66.0); PLATELET COUNT, AUTOMATED 341 10^3/uL (150-450); RED BLOOD COUNT 3.79 10^6/uL (4.00-5.40); WHITE BLOOD COUNT 7.2 10^3/uL (4.0-10.0)
== END 2021-01-25 04:12 | disposition home or self-care (01) ==
LOC: M ED 22:39
DX: I16.0 Hypertensive urgency (principal); Z79.899 Other long term (current) drug therapy